=== PATIENT | female | born 1995 | race African-American/Black ===

== ENCOUNTER 2021-05-26 18:20 | Emergency (ER) | payer MEDICAID, OTHER ==
[~2021-05-26] VITALS: Ht 167.6 cm; Wt 90.7 kg
[~2021-05-26 18:20] MED LIST: IBUP-974 PO
[2021-05-26 18:26] VITALS: BP 132/69
--- NOTE | 2021-05-26 18:40 | NUR ---
PT AMB TO BED 12.
[2021-05-26] MEDS ORDERED: KETOROLAC 60 MG/2 ML VIAL IM ONE (18:45)
[2021-05-26] MEDS ORDERED: IBUPROFEN 800 MG TAB ONE (18:55)
[2021-05-26] MEDS ORDERED: IBUPROFEN 800 MG TAB PO ONE (18:55)
--- NOTE | 2021-05-26 18:58 | NUR ---
26 Y/O FEMALE PATIENT PRESENTS TO ED WITH RIGHT RING FINGER PAIN. PT STATES SHE INJURED HER FINGER WHILE MOVING HOME FURNITURE. DENIES N/V/D; SKIN IS PINK/WARM/DRY; SLIGHT SWELLING, NO REDNESS OR BRUISING; SKIN INTACT, +SENSATION; AAOX4 WITH EVEN AND STEADY GAIT; PT DENIES ANY FEVER, CP, SOB, OR COUGH AT THIS TIME; PATIENT STATES PAIN OF 1/10 AT THIS TIME WITH PALPATION AND A 6/10 CONSTANT; VSS; PATIENT POSITIONED FOR COMFORT; HOB ELEVATED; BEDRAILS UP X1; BED DOWN. ER MD MADE AWARE OF PT STATUS. HX: ASTHMA NKA NO MEDS
--- NOTE | 2021-05-26 19:11 | NUR ---
Pt report given to LIANNE MOTT. Transfer of care at this time.
--- NOTE | 2021-05-26 19:24 | NUR ---
REPORT RECIEVED FROM RADHA MOTT.
[2021-05-26] MEDS ORDERED: ACET-8386 PO (20:59)
[2021-05-26] MEDS ORDERED: IBUP-2213 PO (20:59)
[2021-05-26 21:00] VITALS: BP 129/65
== END 2021-05-26 21:00 | disposition home or self-care (01) ==
LOC: MED 18:20
DX: S62.624A Displaced fracture of middle phalanx of right ring finger, initial encounter for closed fracture (principal); W22.8XXA Striking against or struck by other objects, initial encounter; Y93.89 Activity, other specified; Y92.89 Other specified places as the place of occurrence of the external cause; Y99.8 Other external cause status
CPT/HCPCS: 29130; 73140; 99283; Q0092

== ENCOUNTER 2022-06-08 21:41 | Emergency (ER) | payer OTHER ==
[~2022-06-08] VITALS: Ht 167.6 cm; Wt 97.1 kg
[~2022-06-08 21:41] MED LIST changes: +ACET-8386 PO; +IBUP-2213 PO
[2022-06-08 21:56] VITALS: BP 121/67
[2022-06-08] MEDS ORDERED: KETOROLAC 60 MG/2 ML VIAL IM ONE (23:40)
[2022-06-09 00:07] VITALS: BP 112/66
[2022-06-09] MEDS ORDERED: IBUP-2213 PO (00:17)
[2022-06-09] MEDS ORDERED: LID5T TP (00:17)
[2022-06-09] MEDS ORDERED: CYCL-711 PO (00:17)
--- NOTE | 2022-06-09 00:22 | NUR ---
Written and verbal after care instructions given and explained. Patient alert, oriented and verbalized understanding of instructions. Ambulatory with steady gait. All questions addressed prior to discharge. ID band removed. Patient advised to follow up with PMD. Rx of FLEXERIL, IBUPROFEN AND LIDODERM given. Patient educated on indication of medication including possible reaction and side effects. Opportunity to ask questions provided and answered.
== END 2022-06-09 00:22 | disposition home or self-care (01) ==
LOC: MED 21:41
DX: S39.012A Strain of muscle, fascia and tendon of lower back, initial encounter (principal); J45.909 Unspecified asthma, uncomplicated; X58.XXXA Exposure to other specified factors, initial encounter; Y93.89 Activity, other specified; Y92.89 Other specified places as the place of occurrence of the external cause; Y99.8 Other external cause status
CPT/HCPCS: 81025; 96372; 99283; J1885